=== PATIENT | male | born 1985 | race African-American/Black ===

== ENCOUNTER 2019-08-09 08:34 | Emergency (ER) | payer SELFPAY ==
[2019-08-09 08:33] VITALS: BP 132/85; PULSE 102; RESP 16; TEMP 37.2; O2SAT 98
[2019-08-09] MEDS: Acetaminophen 500 MG TAB 1000 MG PO (08:35)
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
== END 2019-08-09 10:09 | disposition home or self-care (01) ==
PROVIDERS: Emergency Provider Emergency Medicine
DX: R51 Headache (principal); M54.2 Cervicalgia; S00.03XA Contusion of scalp, initial encounter; V43.62XA Car passenger injured in collision with other type car in traffic accident, initial encounter
CPT/HCPCS: 99284; 70450